=== PATIENT | male | born 1950 | race Caucasian/White ===

== ENCOUNTER → 2024-01-19 10:26 | Outpatient (REF) | payer MEDICARE, OTHER, SELFPAY ==
[2024-01-19 11:16] LABS: % Eosinophils 5.2 % (0-6); % Lymphocytes 33.7 % (20.5-51.1); % Monocytes 9.5 % (1.7-9.3); % Neutrophils 50.6 % (42.2-75.2); Absolute Basophils 0.1 10^3/uL (0-0.2); Absolute Eosinophils 0.3 10^3/uL (0-0.7); Absolute Lymphocytes 1.6 10^3/uL (1.2-3.4); Absolute Monocytes 0.5 10^3/uL (0.1-0.6); Absolute Neutrophils 2.4 10^3/uL (1.4-6.5); Hemoglobin 15.1 g/dL (13.0-18.0); Mean Corp Hgb Conc. 34.3 g/dL (33.0-37.0); Mean Corpuscular Hgb 31.9 pg (27.0-31.0); Mean Platelet Volume 11.9 fL (7.4-10.4); Nucleated Red Blood Cells % 0 % (-); Platelet Count 205 10^3/uL (130-400); Red Blood Cell Count 4.73 10^6/uL (4.70-6.10); Red Cell Dist. Width 12.4 % (11.5-14.5); White Blood Cell Count 4.8 10^3/uL (4.8-10.8)
[2024-01-19 12:10] LABS: ALT (SGPT) 34 U/L (0-50); AST (SGOT) 27 U/L (17-59); Albumin 4.4 g/dl (3.5-5.0); Alkaline Phosphatase 42 U/L (38-126); Blood Urea Nitrogen 17 mg/dl (9-20); Calcium 9.6 mg/dl (8.4-10.2); Carbon Dioxide 29 mmol/L (22-30); Chloride 103 mmol/L (98-107); Glucose 114 mg/dl (70-99); HDL Cholesterol 47 mg/dl; LDL Cholesterol, Calculated 68 mg/dl; Potassium 4.6 mmol/L (3.5-5.1); Sodium 140 mmol/L (135-145); Total Bilirubin 0.9 mg/dl (0.2-1.3); Total Cholesterol 137 mg/dl (50-199); Total Protein 7.1 g/dl (6.3-8.2); Triglyceride 111 mg/dl (10-149); Very Low Density Lipoprotein 22 mg/dl (0-30); eGFR > 60.00
[2024-01-19 12:20] LABS: PSA, Total - Diagnostic < 0.06 ng/ml (0.0-4.0)
== END ==
LOC: HWLAB 10:26
PROVIDERS: ATTENDING PHYSICIAN Family Medicine
DX: I10 Essential (primary) hypertension (principal); C61 Malignant neoplasm of prostate; E78.2 Mixed hyperlipidemia
CPT/HCPCS: 36415; 80053; 80061; 84153; 85025

== ENCOUNTER 2024-03-30 13:24 | Day surgery (SDC) | payer MEDICARE, OTHER, SELFPAY ==
[2024-03-30] VITALS (15 sets, daily range): BP systolic 111–183; BP diastolic 68–99; BMI 33.9
--- NOTE | 2024-03-30 09:53 | ED.GENMED ---
History of Present Illness
General
Chief Complaint: Chest Pain
Source: patient, records and spouse
Time Seen by Provider: 03/30/24 09:20
History of Present Illness
History of Present Illness:
73-year-old male with past medical history of hypertension, hyperlipidemia, mesothelioma, prostate cancer presenting to the emergency department for evaluation of pain to the left shoulder that radiates across the anterior portion of his chest and
neck towards the right shoulder, started over the weekend and was admitted at [facility] from Thursday and Thursday, was told he had pneumonia and started on antibiotics and that pain was likely related to pleurisy. Pain went away yesterday
but returned this morning prompting him to come back to the ER for further evaluation. Patient reports that while he was admitted he had an x-ray as well as a CAT scan done, echocardiogram and stress test. Patient continues with oral antibiotics
and anti-inflammatories at home. Symptoms are not any today than what brought him to the hospital over the weekend. 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 He otherwise denies any fevers, chills, rigors, cough. Symptoms appear to be
nonpositional.
Past History
Past History
ED Past Medical History: Cancer, HTN, Hypercholesterolemia and Other (Left forearm ORIF)
ED Past Surgical History: Orthopedic and Urological
Social History
Tobacco: Non-smoker
Alcohol: Occasional
Drug: None
Personal:
Living: with family
Family History
Family History: Other (He has a sister who had a glioblastoma)
Review of Systems
Review of Systems
All Other Systems: ROS reviewed and negative except as documented in HPI and ROS
Phy Exam
Physical Exam
Physical Exam:
GENERAL: Alert , in no apparent distress
EYE: clear conjunctiva b/l
HEAD: NCAT
ENT: o/p clr, mmm.
CARDIAC: Regular rate and rhythm, no murmur .
LUNGS: Clear breath sounds bilaterally, no acute respiratory distress, no wheezes/rales/rhonchi
ABDOMEN: Soft, without focal tenderness, no r/g, no cvat, negative Santiago sign, no tenderness at McBurney's point
NEUROLOGICAL: Alert and oriented
SKIN: Warm and dry, skin intact.
MUSCULOSKELETAL: No edema, well perfused.
PSYCH: Normal and appropriate interaction.
Scores
Heart Failure Risk
Heart Failure Risk Score: Not Applicable
Heart Score for Chest Pain Patients
STEMI patient?: No
History: Slightly or Non-Suspicious
ECG: Nonspecific Repolarization
Age: >/= 65 years
Risk Factors: 1 or 2 Risk Factors
Troponin: </= Normal Limit
Heart Score for Chest Pain Patients: 4
Heart Score Risk: 20.3% MACE over next 6 weeks
Withdrawal Assessment of Alcohol
Withdrawal Assessment Completed?: Not applicable
Course
Orders/Labs/Results
Orders:
Orders
03/30/24 09:05
Electrocardiogram (*1) Urgent
Reason for Study: Chest Pain
EKG- Treatment ONCE
03/30/24 09:58
Complete Blood Count/With Diff Urgent
Comprehensive Metabolic Panel Urgent
Troponin I Urgent
03/30/24 10:30
CR Chest - 2 Views Urgent
Comment:
Reason For Exam: anterior chest wall pain, recent pneumonia
03/30/24 10:53
Aspirin Chewable [Low Strength Aspirin] 324 mg PO NOW STA
03/30/24 10:59
Nitroglycerin Sublingual [Nitrostat (Sublingual)] 0.4 mg SL NOW STA
03/30/24 12:05
Heparin 10,000 units .ROUTE .STK-MED ONE
Verapamil Injectable [Isoptin/Verapamil Injection] 5 mg .ROUTE .STK-MED ONE
03/30/24 12:06
Heparin 1000 Units/500 ml [Heparin] 1,000 units in 500 ml .ROUTE .STK-MED
Heparin Sodium,Porcine/Ns/Pf [Heparin 2000 Units/1000 ml] 2,000 unit in 1,000 ml .ROUTE .STK-MED
Nitroglycerin [Tridil] 1,500 mcg .ROUTE .STK-MED ONE
03/30/24 12:10
Lidocaine HCl/Pf [Xylocaine-Mpf 1% Vial] 50 mg .ROUTE .STK-MED ONE
03/30/24 12:11
Fentanyl Citrate/Pf [Sublimaze] 100 mcg .ROUTE .STK-MED ONE
Midazolam HCl [Versed] 2 mg .ROUTE .STK-MED ONE
Abnormal Lab Results
03/30/24
09:58
RBC 4.68 L 10^6/uL
(4.70-6.10)
MCH 32.5 H pg
(27.0-31.0)
MPV 11.5 H fL
(7.4-10.4)
Monocytes % 10.4 H %
(1.7-9.3)
Glucose 107 H mg/dl
(70-99)
Troponin I 0.038 H* ng/ml
03/30/24 09:58
03/30/24 09:58
Vital Signs
Initial and Last Documented VS:
Initial Vital Signs
Temp Pulse Resp BP Pulse Ox
98.3 F 77 18 183/99 97
03/30/24 08:59 03/30/24 08:59 03/30/24 08:59 03/30/24 08:59 03/30/24 08:59
Last Documented Vital Signs
Temp Pulse Resp BP Pulse Ox
98.3 F 66 18 131/94 95
03/30/24 08:59 03/30/24 12:00 03/30/24 12:00 03/30/24 12:00 03/30/24 12:00
Farm Management Adviser consulted with Physician
Farm Management Adviser consulted with physician?: Yes
Name of Physician Consulted: Germaine
MDM/Problems Addressed
Differential Diagnosis Includes:
Myocarditis/pericarditis, pleurisy, pneumonia, minimal concern for ACS given patient's reportedly normal stress test earlier this week, no concern for PE given patient's reported normal CT scan
MDM/Problems Addressed:
73-year-old male presenting to the emergency department for reevaluation after being diagnosed with pleurisy secondary to pneumonia over the weekend. Due to patient's chest pain he was also worked up with CTA of the chest abdomen pelvis,
echocardiogram and stress test. I was able to review the records via [facility]'s patient portal. I was able to confirm patient's echocardiogram results which included normal left ventricular size, EF of 60 to 65%. There is a trileaflet
aortic valve with mild wall thickening. There is normal pericardium with no significant pericardial effusion. CTA of the chest abdomen pelvis to rule out dissection was ordered which showed ectasia of the ascending thoracic aorta, no pulmonary
embolus, bibasilar infiltrates right greater than left consistent with pneumonia and incidentally found a 25% superior plate compression fracture of L1. Patient was seen by cardiology as well as infectious disease. No cardiac ischemic event on
stress test. Patient taking doxycycline and cefuroxime. Viral panel negative. Overall I still suspect pleurisy as patient's most likely diagnosis given his recent workup. Will recheck labs, EKG and chest x-ray. Patient is otherwise
hemodynamically stable.
Chronic conditions affecting care: HTN
*Pulse Oximetry
Patient hypoxic: no
*EKG
Interpreted by ED Provider?: Yes
Heart Rate: 72
Rate: normal
Rhythm: sinus
[place]: normal axis
Ischemia: non-specific ST changes
*Cheese Wrapper Interpretation
Rate: normal
Rhythm: sinus
*Critical Care Note
Total Time (30-74mins, 75-104mins- exclusive of procedures): Not Applicable
Data Reviewed
Review of Other/Old Records Reveals: Labs, Records, Radiology Studies and Discharge Summary
Patient Management
Discussion with other providers: Hospitalist and Youth Probation Officer
Escalation/DeEscalation of care consider admission/obs:
Patient's troponin did come back mildly elevated at 0.038. Given that he had recurrence of pain combined with a now elevated troponin we will consult with cardiology for possible cardiac catheterization. Hospitalist team is aware and accepts for
continued evaluation and treatment. 324 mg of aspirin and 1 sublingual nitroglycerin were ordered for patient's symptoms.
ED Attending Note
-
Portions of this chart may have been created with voice recognition software.� Occasional wrong word or��sound alike� substitutions may have occurred due to the inherent limitations of voice recognition software.
Discharge Plan
Departure
Patient Disposition: Admit
Date of Disposition: 03/30/24
Time of Disposition: 10:56
Presentation/result/management discussed w/ accepting MD/DO: Hospitalist
Discharge Problem:
Chest pain
Prescriptions:
No Action
cholecalciferol (vitamin D3) 2,000 UNIT tablet
1,000 unit PO DAILY
acetaminophen [Tylenol Extended Release] 650 mg Tablet Extended Release
1,300 mg PO [id number] PRN (Reason: mild pain)
albuterol sulfate [Proventil HFA] 90 MCG/PUFF HFA aerosol inhaler
2 puff inhalation R Q4HPRN PRN (Reason: shortness of breath)
fexofenadine [Emelina] 60 mg Tablet
60 mg PO DAILY
atorvastatin [Lipitor] 10 mg Tablet
10 mg PO DAILY
lisinopril 20 mg Tablet
20 mg PO DAILY
Theragen Tablet
1 tab PO DAILY
amlodipine [Norvasc] 5 mg Tablet
5 mg PO QPM
Qvar 80 mcg/actuation Aerosol
2 mcg INHALATION R Q6HPRN PRN (Reason: sob)
dextroamphetamine-amphetamine [Adderall XR] 20 mg Capsule,Extended Release 24hr
20 mg PO DAILY
doxycycline monohydrate 100 mg Capsule
100 mg PO BID
montelukast [Singulair] 10 mg Tablet
10 mg PO QPM
cefuroxime axetil 500 mg Tablet
500 mg PO BID
fluticasone propionate [Flonase] 50 mcg/actuation [place],Suspension
1 spray INTRANASAL BIDPRN PRN (Reason: allergies)
Trintellix 10 mg Tablet
10 mg PO DAILY
Referrals:
Bulmaro Ng DO [Family Provider] -
Interventions
Interventions:
*Risk Screen - Suicide Last Done: 03/30/24 10:02
*General Assessment Last Done: 03/30/24 10:02
*Neglect/Abuse Screening Last Done: 03/30/24 10:02
ED- Fall Risk Assessment Last Done: 03/30/24 10:04
*ED COVID-19 Vaccine History Last Done: 03/30/24 10:02
ED- Cardiac Assessment Last Done: 03/30/24 10:04
Discharge Date and Time
Print Language: AMHARIC
[2024-03-30 10:06] LABS: % Basophils 0.8 % (0-2); % Eosinophils 5.4 % (0-6); % Immature Granulocytes 0.2 % (0-0.5); % Lymphocytes 22.6 % (20.5-51.1); % Monocytes 10.4 % (1.7-9.3); % Neutrophils 60.6 % (42.2-75.2); Absolute Basophils 0.1 10^3/uL (0-0.2); Absolute Eosinophils 0.3 10^3/uL (0-0.7); Absolute Lymphocytes 1.3 10^3/uL (1.2-3.4); Absolute Monocytes 0.6 10^3/uL (0.1-0.6); Absolute Neutrophils 3.6 10^3/uL (1.4-6.5); Hematocrit 42.9 % (39.0-52.0); Hemoglobin 15.2 g/dL (13.0-18.0); Mean Corp Hgb Conc. 35.4 g/dL (33.0-37.0); Mean Corpuscular Hgb 32.5 pg (27.0-31.0); Mean Corpuscular Volume 91.7 fL (80.0-94.0); Mean Platelet Volume 11.5 fL (7.4-10.4); Nucleated Red Blood Cells % 0 % (-); Platelet Count 203 10^3/uL (130-400); Red Blood Cell Count 4.68 10^6/uL (4.70-6.10); Red Cell Dist. Width 12.5 % (11.5-14.5); White Blood Cell Count 5.9 10^3/uL (4.8-10.8)
[2024-03-30 10:28] LABS: ALT (SGPT) 36 U/L (0-50); AST (SGOT) 31 U/L (17-59); Albumin 4.4 g/dl (3.5-5.0); Alkaline Phosphatase 57 U/L (38-126); Blood Urea Nitrogen 17 mg/dl (9-20); Calcium 10.2 mg/dl (8.4-10.2); Carbon Dioxide 25 mmol/L (22-30); Chloride 105 mmol/L (98-107); Estimated Creatinine Clearance 95 ml/min; Glucose 107 mg/dl (70-99); Potassium 3.9 mmol/L (3.5-5.1); Sodium 137 mmol/L (135-145); Total Bilirubin 0.6 mg/dl (0.2-1.3); eGFR > 60.00
[2024-03-30 10:47] LABS: Troponin I 0.038 ng/ml
[2024-03-30] MEDS: NITROSTAT (SUBLINGUAL) 0.4 MG SL (11:02)
[2024-03-30] MEDS: LOW STRENGTH ASPIRIN 324 MG PO (11:02)
--- NOTE | 2024-03-30 11:47 | CON.CAR ---
Addendum entered and electronically signed by Yuliana Zapien MD 03/30/24 14:12:
I saw and examined the patient.
The Manager Pharmacy's note was reviewed and I agree with the note.
Comment: Briefly, patient is a 73-year-old gentleman with past medical history of hypertension, hyperlipidemia, ADD, eosinophilia who presents with 2 recurrent episodes of chest discomfort across the anterior upper chest and shoulders radiating into
his neck initially Thursday morning on March 27, 2024 which prompted visit to [facility] emergency department with an overnight stay with a negative cardiac workup including negative troponins, no acute ischemic changes on EKG, CT angiogram per
PE/aortic protocol which was negative for aortic dissection or PE. CT showed some concerns possible for a pneumonia and therefore pain was thought to be pleuritic in nature and he was sent home on antibiotics however patient denies any fevers or
cough. They also did a stress test per the patient which was negative. He reports that he did well for 1 day after being home however this morning he was woken up again by similar chest discomfort and presented to [facility] emergency room. He
does note power washing last week with some discomfort in the anterior chest region afterwards and prior episodes of pleuritis however both of the symptoms seem different to that. No specific exertional component to his discomfort. No exacerbating
or alleviating factors. Patient took Tylenol for pain this morning without significant relief. He was given aspirin and nitroglycerin in the emergency department with minimal improvement. Initial troponin mildly elevated at 0.038 with cutoff
value per lab at 0.035.
Lab work and vital signs reviewed. On exam patient is in no acute distress, well-appearing, normal S1 and S2, no murmurs, rubs or gallops, lungs are clear to auscultation bilaterally, no carotid bruits, no JVP, abdomen soft, nontender not distended
with active bowel sounds, warm extremities without significant edema.
ECG does not show any signs of acute ischemia. Otherwise it is a normal sinus rhythm with normal axis.
Recommendations:
1. We had a discussion with the patient that after recent cardiac workup which was not revealing in the setting of atypical symptoms, suspicion for primarily cardiac etiology is low however he does have multiple cardiovascular risk factors and at
the age of 73, we cannot definitively rule out that this is not a type I NSTEMI with a mild troponin elevation. In this case after discussing the risk and benefits we agreed to move forward with invasive cardiac catheterization to rule out
obstructive CAD.
2. In the interim we will continue his current medications including daily aspirin. His most recent LDL was 68.
3. Further recommendations based on heart catheterization.
Yuliana Zapien MD, [facility], [facility]
Original Note:
Consultation
Consultation Request
Date/Time Consultation Performed: 03/30/24
Requesting Provider: Marshall Herrmann PA-C
Performing Provider: Milagro Vera PA-C for Dr. Zapien
Reason for Consultation: CP
Medical History
-
Chief Complaint: CP
History of Present Illness:
Patient is a 73 yo M with PMH of HTN, HLD, ADD, eosinophilia who reports developed sharp discomfort across his upper chest and shoulders, into his neck on Thursday morning, 03/27/24. He states he noted it when he woke up that morning. Took tylenol
which did not improve the pain. He was evaluated at [facility] and was admitted 03/27-03/28. Pain was not improved with morphine, tramadol. During his stay, he had echo and nuclear stress test both of which were reportedly unrevealing for
significant abnormalities. Trops were negative. He also had CTA which was negative for dissection or PE. It did show possible PNA so pain was felt to be pleuritic secondary to that and was discharged on abx. He reports he did ok for several days
however this morning was noted upon him waking. He reports power washing his home last week however had soreness for a day or so which then resolved. No other trauma or injuries to area. No associated SOB, palpitations, lightheadedness, fevers. Trop
0.038. Cardiology consulted for eval. Received SL nitro x1 and asa 324mg and pain improved however not yet resolved.
PMH:
HTN
HLD
ADD
eosinophilia
Past Medical History
Past Medical History: Other (in HPI)
Social History
Tobacco: Non-Smoker
Alcohol: Occasional
Personal:
Living: With Family
Employment: Retired
Family History
Family History: Other (arrhythmia in mother)
Allergies / Home Medications
Allergy/AdvReac Type Severity Reaction Status Date / Time
No Known Allergies Allergy Verified 01/24/20 11:19
�Medication �Instructions �Recorded �Confirmed �Type
cholecalciferol (vitamin D3) 50 1,000 unit PO DAILY 09/26/17 03/30/24 History
mcg (2,000 unit) tablet
acetaminophen 650 mg 1,300 mg PO [id number] PRN mild pain 03/30/24 03/30/24 History
tablet,extended release
albuterol sulfate 90 mcg/actuation 2 puff inhalation R Q4HPRN PRN 03/30/24 03/30/24 History
aerosol inhaler (Proventil HFA) shortness of breath
amlodipine 5 mg tablet (Norvasc) 5 mg PO QPM 03/30/24 03/30/24 History
atorvastatin 10 mg tablet (Lipitor) 10 mg PO DAILY 03/30/24 03/30/24 History
beclomethasone dipropionate 80 2 mcg inhalation R Q6HPRN PRN sob 03/30/24 03/30/24 History
mcg/actuation aerosol inhaler
cefuroxime axetil 500 mg tablet 500 mg PO BID 03/30/24 03/30/24 History
dextroamphetamine-amphetamine ER 20 mg PO DAILY 03/30/24 03/30/24 History
20 mg 24hr capsule,extend release
(Adderall XR)
doxycycline monohydrate 100 mg 100 mg PO BID 03/30/24 03/30/24 History
capsule
fexofenadine 60 mg tablet 60 mg PO DAILY 03/30/24 03/30/24 History
fluticasone propionate 50 1 spray intranasal BIDPRN PRN 03/30/24 03/30/24 History
mcg/actuation nasal allergies
spray,suspension
lisinopril 20 mg tablet 20 mg PO DAILY 03/30/24 03/30/24 History
montelukast 10 mg tablet 10 mg PO QPM 03/30/24 03/30/24 History
(Singulair)
therapeutic multivitamin 1 tab PO DAILY 03/30/24 03/30/24 History
vortioxetine 10 mg tablet 10 mg PO DAILY 03/30/24 03/30/24 History
(Trintellix)
Review of Systems
-
History Source: Patient and Family
All other systems: Negative unless noted
Physical Exam
Vital Signs
Temp Pulse Resp BP Pulse Ox
98.3 F 75 23 156/84 94
03/30/24 08:59 03/30/24 10:00 03/30/24 10:00 03/30/24 11:02 03/30/24 10:00
Lab Results
03/30/24 09:58
03/30/24 09:58
Troponin I 0.038 ng/ml H* 03/30/24 09:58
Physical Exam
General: No Apparent Distress and Comfortable
HEENT: Normocephalic, Anicteric and Moist Mucous Membranes
Respiratory: Clear and Non Labored Respirations
Cardiac: Regular Rhythm
GI: Soft, Non Tender, Non Distended and Normal Bowel Sounds
Musculoskeletal: No Clubbing, No Cyanosis and No Edema
Skin: Warm and Dry
Neuro: AO x 3
Impression / Plan
-
Primary Demand Inspector: none
Assessment:
Presentation with CP
Elevated troponin
Recent PNA, [facility] 03/27, on abx
HTN
HLD
ADD
eosinophilia
L1 compression fracture by CTA 03/27/24
ECHO 8/19/24: EF 60 to 65%, stage I diastolic dysfunction, trace MR, trace AR, mild TR
Plan:
-Patient with recent admission to [facility] 03/27 - 03/28 for similar symptoms, with negative workup as noted above now presents to [facility] with recurrence of symptoms.
-Initial troponin 0.038. During [facility] admission were serially negative. trend to peak
-EKG sinus rhythm with NSSTS
-CXR without acute abnormality noted
-reviewed testing from [facility] admission and discussed with patient/ at bedside
-given recurrent symptoms with mild trop elevation and improvement in symptoms with asa, nitro, will plan for cardiac cath today. NPO. reviewed procedure with patient and at bedside and they are agreeable to proceed
-further recommendations based on results of cath
-not on asa as OP
-on norvasc 5mg daily, lisinopril 20mg daily, lipitor 10mg QPM as OP
-d/w ER PA
Data Reviewed
-
EKG: Tracing Personally Visualized and interpreted
Radiology: Report Reviewed by me
Medical Tests (Nuc Med, Echo etc): Report Reviewed by me
Labs: Labs Reviewed by me
Old Records: Reviewed
--- NOTE | 2024-03-30 13:19 | HPS.HSE ---
Family Physician
-
Family Physician: Bulmaro Ng
Chief Complaint
-
Chest pain
History of Present Illness
Patient is a 73-year-old male with hypertension, hyperlipidemia, eosinophilia that presented to the emergency department with a complaint of sharp discomfort across his upper chest and shoulders.
Symptoms for started on 03/27/2024 with upper chest discomfort that radiated into his neck. States that started when he awoke that morning. Initially took Tylenol without improvement. He was at the [facility] and went to the hospital at [facility], admitted 03/27 and 03/28. Pain noted did not improve with morphine or tramadol. During hospitalization he had echocardiogram and nuclear stress test which were reportedly both unrevealing. Also mentioned to have a CTA which was negative
for any dissection or PE. CT did show possible findings consistent with pneumonia and he was started on antibiotics, discharged on oral regimen. His symptoms were improved for several days however on the morning of 03/30/2024 he had recurrence of
pain upon awakening. Denies any trauma or known injuries to the upper thorax. Denies associated symptoms of shortness of breath, lightheadedness, palpitations, fevers.
Upon arrival to the ED he was hemodynamically stable, afebrile, on room air comfortably. ED labs showed troponin 0.038 though otherwise were noncontributory. ECG did not show any acute ST changes or STEMI equivalents, no obvious T wave
abnormalities. Chest x-ray today was unremarkable for any acute findings. He was given sublingual nitroglycerin and full dose aspirin in the ED. Evaluated by cardiology who recommended proceeding with cardiac catheterization and angiography today.
Medical History
Past Medical History
Past Medical History: Reports HTN and Hypercholesterolemia
Past Surgical History: Reports None
Social History
Tobacco: Non-smoker
Alcohol: None
Drug: None
Family History
Family History: Not pertinent
Allergies / Home Medications
Allergies reflects when Allergies were last updated in [employer].
Home Medications with original date entered in [employer]
Allergy/Medication List:
NKDA
Review of Systems
-
History Source: Patient
A 12 point ROS was completed and negative except as noted: Yes
Constitutional: Reports No Symptoms
EENT: Reports No Symptoms
Respiratory: Reports No Symptoms
Cardiac: Reports Chest Pain
Abdomen/GI: Reports No Symptoms
: Reports No Symptoms
Musculoskeletal: Reports No Symptoms
Skin: Reports No Symptoms
Neurological: Reports No Symptoms
Endocrine: Reports No Symptoms
Hematologic/Lymphatic: Reports No Symptoms
Psych: Reports No Symptoms
Physical Exam
Vital Signs
Vital Signs
Temp Pulse Resp BP Pulse Ox
98.3 F 58 18 131/94 95
03/30/24 08:59 03/30/24 12:16 03/30/24 12:00 03/30/24 12:00 03/30/24 12:00
Physical Exam
General: No Apparent Distress and Comfortable
HEENT: NormoCephalic, Anicteric, Moist mucous membranes and Atraumatic
Respiratory: Clear and Non Labored Respirations; No Wheezes, Rales, Rhonchi or Accessory Resp Muscle Use
Cardiac: S1/S2 and Regular Rhythm; No Murmur, Rub, Gallop, Peripheral Edema or JVD
GI: Soft, Non Tender, Non Distended and Normal Bowel Sounds
Musculoskeletal: No Clubbing, No Cyanosis and No Edema
Skin: Warm and Dry; No Rash or Jaundice
Neuro: AO x 3, Nonfocal/grossly intact and Cranial Nerves Intact; No Tremors
Hematologic/Lymphatic: No Lymphadenopathy
Laboratory Results
-
03/30/24 09:58
03/30/24 09:58
Laboratory Results
Total Bilirubin 0.6 mg/dl (0.2-1.3) 03/30/24 09:58
AST 31 U/L (17-59) 03/30/24 09:58
ALT 36 U/L (0-50) 03/30/24 09:58
Alkaline Phosphatase 57 U/L (38-126) 03/30/24 09:58
Troponin I 0.038 ng/ml H* 03/30/24 09:58
Impression/Plan
-
#NSTEMI -- Type 1 vs Type 2
-Recurrent chest pain with radiation to neck and shoulders though sharp in quality
-No obvious ischemic ECG changes though does have an elevated troponin now
-Coronary risk factors include hypertension, hyperlipidemia, age and male gender
-Status post sublingual nitroglycerin and full dose aspirin given in the ED
-Has remained hemodynamically stable, no indication for emergent cath
-Does have a relatively high pretest probability
-Cardiology following
Plan
-Plan for [facility] with angiography today
-Order lipid panel, A1c to assess metabolic status
-Trend troponin with serial ECGs pending [facility] today
-Continue with home statin and ACEi, consider escalating statin
-Consider low-dose beta-kenny and antiplatelet therapy pending cath results
-Admit to telemetry
#Community-acquired pneumonia
-Recently diagnosed at [facility], DC'd on cefuroxime twice daily
-Chest x-ray today without any signs of consolidation
-Afebrile, currently on room air comfortably
-Plan to complete cefuroxime course as prescribed
#Hypertension
-Home medications include amlodipine and lisinopril
-No known history of hypertensive systemic disease
-Blood pressure on arrival was well-controlled
#Dyslipidemia
-Currently on statin therapy
-No current ASCVD history though being worked up for chest pain
#Eosinophilia
-Unclear etiology, chronic
-No signs of insidious eosinophilic disease
-Will monitor daily CBC
DVT prophylaxis: Heparin
Diet: N.p.o. pending possible cath today,
CODE STATUS: Full code
Disposition: Admit to telemetry
I will be admitting Mack Sawyer to telemetry for possible ACS which will require further workup via left heart catheterization and angiography. He is at increased risk for morbidity and mortality due to coronary ischemia and potential for
complications including life-threatening arrhythmias and asystole. I have independently evaluated and assessed the patient. I have spoken with the ED provider as well as cardiology team in order to further facilitate this patient's care.
[2024-03-30] MEDS: NSS 1000 IV (13:30)
--- NOTE | 2024-03-30 14:12 | ITS.CL.CATH ---
Support Assistant - Catheterization
Cardiac Catheterization
Procedure Report:
LEFT HEART CATHETERIZATION
Date of Procedure: March 30, 2024
Referring: [facility] emergency department
PROCEDURES:
1. Left heart catheterization, coronary angiogram.
2. Ultrasound-guided access
INDICATION: Patient is a 73-year-old gentleman with past medical history of hypertension, hyperlipidemia, ADD, eosinophilia who presents with 2 recurrent episodes of chest discomfort across the anterior upper chest and shoulders radiating into his
neck initially Thursday morning on March 27, 2024 which prompted visit to [facility] emergency department with an overnight stay with a negative cardiac workup including negative troponins, no acute ischemic changes on EKG, CT angiogram per
PE/aortic protocol which was negative for aortic dissection or PE. CT showed some concerns possible for a pneumonia and therefore pain was thought to be pleuritic in nature and he was sent home on antibiotics however patient denies any fevers or
cough. They also did a stress test per the patient which was negative. He reports that he did well for 1 day after being home however this morning he was woken up again by similar chest discomfort and presented to [facility] emergency room. He
does note power washing last week with some discomfort in the anterior chest region afterwards and prior episodes of pleuritis however both of the symptoms seem different to that. No specific exertional component to his discomfort. No exacerbating
or alleviating factors. Patient took Tylenol for pain this morning without significant relief. He was given aspirin and nitroglycerin in the emergency department with minimal improvement. Initial troponin mildly elevated at 0.038 with cutoff
value per lab at 0.035. After detailed informed consent, patient was brought up to the heart catheterization lab to rule out obstructive CAD given concern for possible type I NSTEMI
ACCESS: Right radial artery, 6 [place] sheath, under ultrasound guidance
HEMODYNAMICS : (mmHg)
AO (s/d) : 113/69
LV (s/d) : 117/6
LVEDP : 10
CORONARY FINDINGS
DOMINANCE: Right
LEFT MAIN: The left main artery is a large-caliber vessel which gives rise to the left anterior descending artery, the ramus intermedius branch and the left circumflex artery. There is mild distal tapering without obstructive CAD.
LEFT ANTERIOR DESCENDING: The left anterior descending artery is a medium caliber vessel which gives rise to multiple small caliber diagonal branches as it courses through the anterior interventricular groove towards the apex. There is minimal
luminal irregularities.
CIRCUMFLEX: The left circumflex artery is a small caliber vessel which gives rise to 1 major obtuse marginal branch. There is minimal luminal irregularities.
RAMUS INTERMEDIUS: The ramus intermedius branch is a medium caliber vessel with 20% stenosis in the proximal portion. Otherwise there is minimal luminal irregularities and an otherwise moderately tortuous vessel.
RIGHT CORONARY ARTERY: The ramus intermedius branch is a medium to large caliber, dominant vessel which gives rise to the right posterior descending artery and the right posterolateral system. There is minimal luminal irregularities.
SEDATION: 25 minutes of procedural sedation was utilized. An independent medical imaging technician was present to assist with and help manage the patient's level of consciousness and physiologic status.
RADIATION SUMMARY: Fluoro Time (min): 4.4, Dose (mGy): 399.91, DAP (Gy.cm2) : 34.87
Closure Device: Vascular band over right radial artery, 10 cc of air.
CONCLUSIONS
1. No obstructive coronary artery disease.
2. Normal LVEDP at 10 mmHg.
RECOMMENDATIONS
1. Wean radial band per protocol.
2. Aggressive management of cardiovascular risk factors.
3. Defer to primary team for workup/management of noncardiac chest pain
Yuliana Zapien MD, FACC, [facility] [place]
[2024-03-30 14:59] LABS: Troponin I 0.035 ng/ml
--- NOTE | 2024-03-30 15:13 | CM ---
Chart reviewed. Patient is independent of ADLS, lives with his in a [address], 0 [address], 0 DME. Plan is for the patient to return home. CM to follow
[2024-03-30] MEDS: NORVASC 5 MG PO (17:21)
[2024-03-30] MEDS: SINGULAIR 10 MG PO (17:25)
[2024-03-30] MEDS: HEPARIN 5000 UNITS SC ×2 (17:25→23:13)
--- NOTE | 2024-03-30 17:56 | PTCARENOTE ---
Pt received post cardiac cath done via right radial artery. Radial band removed per protocol without problem, activity restrictions for right hand understood by patient. Pt denies any discomfort, up independently in room, voiding without difficulty.
Troponin level peaked at 0.038. Telemetry shows sinus rhythm.
[2024-03-30] MEDS: CEFTIN 500 MG PO (20:02)
[2024-03-30] MEDS: VIBRAMYCIN 100 MG PO (20:02)
--- NOTE | 2024-03-30 21:36 | PTCARENOTE ---
Pt received at change of shift, Ox3, NSR on monitor, HR 66, reviewed activity restrictions. see nursing shift assessment for complete assessment.
Pt denies any discomfort, up independently in room, voiding without difficulty. Resting in bed, call lee in reach.
[2024-03-31] VITALS (13 sets, daily range): BP systolic 111–156; BP diastolic 75–120
[2024-03-31 03:38] LABS: Hematocrit 41.6 % (39.0-52.0); Hemoglobin 15.1 g/dL (13.0-18.0); Mean Corp Hgb Conc. 36.3 g/dL (33.0-37.0); Mean Corpuscular Hgb 32.2 pg (27.0-31.0); Mean Corpuscular Volume 88.7 fL (80.0-94.0); Mean Platelet Volume 11.2 fL (7.4-10.4); Platelet Count 206 10^3/uL (130-400); Red Blood Cell Count 4.69 10^6/uL (4.70-6.10); Red Cell Dist. Width 12.6 % (11.5-14.5); White Blood Cell Count 8.2 10^3/uL (4.8-10.8)
[2024-03-31 04:00] LABS: Blood Urea Nitrogen 16 mg/dl (9-20); Calcium 9.9 mg/dl (8.4-10.2); Carbon Dioxide 24 mmol/L (22-30); Chloride 104 mmol/L (98-107); Estimated Creatinine Clearance 95 ml/min; Glucose 94 mg/dl (70-99); HDL Cholesterol 51 mg/dl; LDL Cholesterol, Calculated 75 mg/dl; Magnesium 2.2 mg/dl (1.6-2.3); Potassium 4.2 mmol/L (3.5-5.1); Sodium 141 mmol/L (135-145); Total Cholesterol 150 mg/dl (50-199); Triglyceride 123 mg/dl (10-149); Very Low Density Lipoprotein 24 mg/dl (0-30); eGFR > 60.00
[2024-03-31 04:49] LABS: Hepatitis C Antibody Negative (Negative)
[2024-03-31 08:34] LABS: Glycohemoglobin (HgbA1c) 5.4 % (4.0-5.6)
[2024-03-31] MEDS: CEFTIN 500 MG PO ×2 (08:57→19:55)
[2024-03-31] MEDS: THERAGRAN 1 TABLET PO (08:57)
[2024-03-31] MEDS: CLARITIN 10 MG PO (08:58)
[2024-03-31] MEDS: VIBRAMYCIN 100 MG PO ×2 (08:58→19:55)
[2024-03-31] MEDS: ZESTRIL 20 MG PO (08:58)
[2024-03-31] MEDS: HEPARIN SC (08:58)
[2024-03-31] MEDS: LIPITOR 10 MG PO (08:58)
[2024-03-31] MEDS: VITAMIN D3 (cholecalciferol) 25 MCG PO (08:58)
--- NOTE | 2024-03-31 09:44 | W.PN.HOSP.TC ---
Today's Communication/Plan
-
Discharge
Assessment / Plan
Assessment / Plan
#Pleuritic chest pain
#Community-acquired pneumonia
-Recently diagnosed at [facility], DC'd on cefuroxime twice daily
-Chest x-ray without any signs of consolidation or other acute processes
-Afebrile, currently on room air comfortably, nontoxic-appearing
-Plan to complete cefuroxime and doxycycline course as prescribed
#Type II NSTEMI
-Recurrent chest pain with radiation to neck and shoulders though sharp in quality
-No obvious ischemic ECG changes though does have an elevated troponin now
-Coronary angiography on 03/30 showed patent epicardial coronary arteries
-Cardiology following
#Hypertension
-Home medications include amlodipine and lisinopril
-No known history of hypertensive systemic disease
-Blood pressure on arrival was well-controlled
#Dyslipidemia
-Currently on statin therapy
-No current ASCVD history though being worked up for chest pain
#Eosinophilia
-Unclear etiology, chronic
-No signs of insidious eosinophilic disease
-Will monitor daily CBC
DVT prophylaxis: Heparin
Diet: N.p.o. pending possible cath today,
CODE STATUS: Full code
Anticipated Discharge: Today
Subjective/Interval History
-
Date of Service: March 31, 2024
Seen and examined at the bedside. No acute events overnight. He denies any recurrence of his chest pain. Denies all other symptoms including shortness of breath, palpitations, nausea, vomiting, fevers or chills, abnormal bleeding or bruising,
urinary issues.
He does state that his symptoms yesterday resolved within 20 minutes of receiving sublingual nitroglycerin and full dose aspirin. Suspect that the aspirin was source of improved pain with anti-inflammatory action reducing pleural irritation.
Objective Data
-
Labs:
Laboratory Results
03/31/24
03:08
WBC 8.2
Hgb 15.1
Hct 41.6
Plt Count 206
Sodium 141
Potassium 4.2
Chloride 104
Carbon Dioxide 24
BUN 16
Creatinine 0.8
Glucose 94
Calcium 9.9
Vital Signs:
Vital Signs
Temp Pulse Resp BP Pulse Ox
97.9 F 65 20 130/89 95
03/31/24 07:12 03/31/24 08:45 03/31/24 07:12 03/31/24 07:14 03/31/24 09:01
I&O
03/30/24 03/31/24 04/01/24
06:59 06:59 06:59
Intake Total 740 / 740
Balance 740 / 740
Review of Systems
-
History Source: Patient
All other systems: Reviewed and negative
Physical Exam
-
General: Well Developed, Well Nourished and No Apparent Distress
HEENT: Normocephalic, Atraumatic and Moist Mucous Membranes
Respiratory: Clear to Auscultation and Non Labored Respirations
Cardiac: Regular Rhythm and S1/S2; Negative Murmur, Rub or Gallop
GI: Soft, Nontender, Nondistended and Normal Bowel Sounds
Musculoskeletal: No Clubbing, No Cyanosis and No Edema
Skin: Warm and Dry; Negative Rash
Neuro: AO x 3, Nonfocal/Grossly Intact and Central Nerve's Intact
Data Reviewed
-
Labs: Labs Reviewed by me and Discussed with Patient
--- NOTE | 2024-03-31 09:53 | W.DCSUMMARY ---
Discharge Summary
Discharge Data
Date of Admission: 03/30/24
Date of Discharge: 03/31/24
-
Pending Results: No
Hospital Course
Patient presented to the hospital with recurrent chest pain. Initially was hospitalized and the [facility]) where he was diagnosed with bacterial pneumonia and started on cephalosporin and doxycycline therapy. Developed
recurrent chest pain after discharge on morning of 03/30/2024. Reportedly negative stress testing and CTA at [facility]. Upon arrival had normal EKG with mildly elevated troponin. Coronary angiography was unyielding with patent
epicardial coronary circulation. Suspect pleurisy related to recent pneumonia, chest pain was associated with inspiration. Telemetry was unyielding overnight, no recurrence of symptoms after left heart cath. Discharged on oral NSAIDs as needed
for pleuritic pain.
Discharge Plan
-
Patient Disposition: Home (Routine Discharge)
Discharge Diagnosis/Procedures: Cardiac cath
Pleuritic chest pain
Condition: Good
Diet: Low Cholesterol
Activity: No restrictions
Driving Restrictions: No driving for 24 hours
Bathing Restrictions: None
Blood Work: None
Others Tests: None
Specialty Instructions: Weigh Daily- Call MD for wt gain/loss 3 lbs overnight/5 lbs in 1 week
Activity Restrictions/Additional Instructions:
Follow-up with your primary care physician and service inspector within 7 to 10 days after discharge from the hospital
Stand Alone Forms: DC Instructions- Cath/EP Lab
Referrals:
Ginette Osborne PA-C [Specified Professional Personl] - 04/20/24 9:40 am
Bulmaro Ng DO [Family Provider] - in one to two months
Additional Discharge Medication Instructions: Take [id number] ibuprofen or Aleve as needed for pleuritic chest pain
Continue antibiotics for pneumonia as previously prescribed
Prescriptions:
Continued
cholecalciferol (vitamin D3) 2,000 UNIT tablet
1,000 unit PO DAILY
acetaminophen 650 mg Tablet Extended Release
1,300 mg PO [id number] PRN (Reason: mild pain)
albuterol sulfate [Proventil HFA] 90 MCG/PUFF HFA aerosol inhaler
2 puff inhalation R Q4HPRN PRN (Reason: shortness of breath)
fexofenadine 60 mg Tablet
60 mg PO DAILY
atorvastatin [Lipitor] 10 mg Tablet
10 mg PO DAILY
lisinopril 20 mg Tablet
20 mg PO DAILY
therapeutic multivitamin Tablet
1 tab PO DAILY
amlodipine [Norvasc] 5 mg Tablet
5 mg PO QPM
beclomethasone dipropionate 80 mcg/actuation Aerosol
2 mcg INHALATION R Q6HPRN PRN (Reason: sob)
dextroamphetamine-amphetamine [Adderall XR] 20 mg Capsule,Extended Release 24hr
20 mg PO DAILY
doxycycline monohydrate 100 mg Capsule
100 mg PO BID
montelukast [Singulair] 10 mg Tablet
10 mg PO QPM
cefuroxime axetil 500 mg Tablet
500 mg PO BID
fluticasone propionate 50 mcg/actuation [place],Suspension
1 spray INTRANASAL BIDPRN PRN (Reason: allergies)
Trintellix 10 mg Tablet
10 mg PO DAILY
Discharge Orders:
Discharge Patient (As Directed); Ordered 03/31/24
Ordered By: Ramírez Reyes
Care Plan Goals
Care Plan Goals:
Problem: Readiness for enhanced knowledge related to diagnosis and treatment plan
Goal: Understand your diagnosis and treatment plan needs, including medications if applicable.
Instructions: Know your diagnosis, underlying causes and treatment plan options, including medications if applicable. Consult with your health care team to learn about your diagnosis and treatment plan, including medications if applicable.
Discharge Date and Time
Print Language: GUATEMALAN
--- NOTE | 2024-03-31 10:13 | PTCARENOTE ---
Pt noted to be in atrial fib at a rate @100-120 with activity. Confirmed by ECG, Milagro Vera NP aware. Pt asymptomatic and denies ever having known about atrial fib in the past.
--- NOTE | 2024-03-31 11:14 | W.PN.CARDCBS ---
Addendum entered and electronically signed by Felicia Haque DO 03/31/24 15:51:
I saw and examined the patient.
The Bond Manager's note was reviewed and I agree with the note.
Comment: Patient seen and examined after we were notified that he had gone into atrial fibrillation with RVR. Symptoms not associated with chest pain and patient is relatively asymptomatic. Hospital studies and findings reviewed with patient.
GEN: AAOX3, NAD
HEENT: mmm
LUNGS: CTA B/L, no wheezes/rales
CV: Irreg, S1/S2, no murmur
EXT: No cyanosis, clubbing, edema
Plan:
Newly diagnosed relatively asymptomatic atrial fibrillation with rapid ventricular response
-We discussed diagnosis, possible symptoms, treatment management options and stroke risk including stroke risk reduction
-IV Cardizem push followed by oral Cardizem. Hopeful patient will convert to sinus rhythm spontaneously however if not we discussed cardioversion. As patient is relatively asymptomatic, if rate controlled we will favor 4 weeks of oral
anticoagulation followed by outpatient cardioversion
-Start new Eliquis 5 mg twice daily for stroke risk reduction
-Check TSH
Nonobstructive coronary artery disease by cardiac catheterization 03/30/2024
-Reviewed left heart catheterization findings with patient. Right radial site intact
-Continue risk factor reduction; continue statin
Hypertension�blood pressure is relatively controlled
Original Note:
Today's Communication / Plan
-
IV cardizem push. stop norvasc, start cardizem cd 120mg daily
eliquis 5mg BID
ongoing work up of chest pain
Impression / Plan
-
Primary Research And Development Manager: none
Assessment:
Presentation with CP
Elevated troponin, nonobstructive CAD by cath 03/30/24
Atrial fibrillation with RVR, new diagnosis
Recent PNA, diagnosed [facility] 03/27, on abx
HTN
HLD
ADD
eosinophilia
L1 compression fracture by CTA 03/27/24
ECHO 03/28/24: EF 60 to 65%, stage I diastolic dysfunction, trace MR, trace AR, mild TR
Plan:
-he presented with chest and shoulder discomfort. trop peaked at 0.038.
-Status post chest CTA, echo and nuclear stress test earlier this week at [facility] which were unremarkable. Underwent cardiac catheterization with nonobstructive CAD 03/30
-No chest discomfort overnight
-Chest x-ray without acute abnormality
-This morning was noted to go into atrial fibrillation with rapid ventricular response, new diagnosis for patient. reports occurred while patient was straining to go to bathroom. Not having pain this morning, and asymptomatic. Will give IV
Cardizem push and start p.o. Cardizem 120 mg daily. Will stop outpatient Norvasc with addition of Cardizem.
-Add Eliquis 5 mg twice daily
-Continue outpatient lisinopril and Lipitor
-continue work up of chest/shoulder discomfort per primary service
Progress Note - Research And Development Manager
Subjective
Date of Service: March 31, 2024
No present chest pain, shortness of breath, palpitations, lightheadedness
Objective
Labs:
03/31/24 03:08
03/31/24 03:08
Labs
Hgb 15.1 g/dL (13.0-18.0) 03/31/24 03:08
Hct 41.6 % (39.0-52.0) 03/31/24 03:08
Plt Count 206 10^3/uL (130-400) 03/31/24 03:08
Sodium 141 mmol/L (135-145) 03/31/24 03:08
Potassium 4.2 mmol/L (3.5-5.1) 03/31/24 03:08
BUN 16 mg/dl (9-20) 03/31/24 03:08
Creatinine 0.8 mg/dL (0.7-1.3) 03/31/24 03:08
Glucose 94 mg/dl (70-99) 03/31/24 03:08
Troponins
03/30/24 03/30/24 03/30/24
09:58 14:16 19:33
Troponin I 0.038 H* 0.035 H* Cancelled
Vital Signs and I&O:
Vital Signs
Temp Pulse Resp BP Pulse Ox
98.1 F 65 20 142/110 96
03/31/24 11:07 03/31/24 08:45 03/31/24 11:07 03/31/24 11:07 03/31/24 11:07
Vital Signs
Temp Pulse Resp BP Pulse Ox
98.1 F 65 20 142/110 96
03/31/24 11:07 03/31/24 08:45 03/31/24 11:07 03/31/24 11:07 03/31/24 11:07
Intake & Output
03/29/24 03/30/24 03/31/24 04/01/24
07:59 07:59 07:59 07:59
Intake Total 740 / 740
Balance 740 / 740
Physical Exam
Physical Exam
GEN: No distress, awake, alert, oriented x3
HEENT: supple, anicteric, mmm, eomi
LUNGS: CTA B/L, no wheezes/rales
CV: Irreg, S1/S2, no murmur
EXT: No cyanosis, clubbing, edema
NEURO: Gross non-focal
SKIN: Warm, pink, dry. No rash
[2024-03-31] MEDS: ELIQUIS 5 MG PO ×2 (11:27→19:55)
[2024-03-31] MEDS: CARDIZEM 10 MG IV (11:27)
--- NOTE | 2024-03-31 11:46 | CM ---
Pricing on EliMENABANQER through the patient's [employer] is $107.41 for a 30 day supply. Patient is agreeable to the cost. I placed a free 30 day coupon in the patient's red discharge folder
[2024-03-31] MEDS: CARDIZEM CD 120 MG PO (13:21)
[2024-03-31] MEDS: CARDIZEM 125 IV (16:13)
--- NOTE | 2024-03-31 16:40 | W.PN.UPDATE ---
Update Note
Progress Note Update
Prior to discharge patient converted to atrial fibrillation while having a bowel movement. No recurrence of symptoms or any new symptoms of shortness of breath, palpitations, lightheadedness during his atrial fibrillation. Discharge was canceled
at that time, cardiology evaluated him and he is now on diltiazem drip with Eliquis twice daily. Question if his atrial fibrillation is related to his coronary angiogram as he has not had any previous episodes of atrial fibrillation, and had no
A-fib while on telemetry at hospital at [facility] prior to here.
Will continue to attempt rate control, continue with anticoagulation. If atrial fibrillation is persistent, patient may be a good candidate for ablation due to his minimal comorbidities, though at this time he is not symptomatic.
--- NOTE | 2024-03-31 19:45 | PTCARENOTE ---
Pt given cardizem bolus, eliquis and oral cardizem, he remains in atrial fib @100-120. cardizem infusion startd at 5mg/hr, plan for CV on 04/01 if needed. Pt learning about atrial fib.
[2024-03-31] MEDS: SINGULAIR 10 MG PO (19:55)
--- NOTE | 2024-03-31 23:27 | PTCARENOTE ---
Received pt at handoff. AOX3. Assessment completed as documented. Tele- Afib. HR 70-90s. Cardizem gtt infusing at 5ml/hr. Pt currently has no c/o at this time. Educated pt to use call lee to report any changes in status. Currently in bed; call lee
w/in reach.
[2024-04-01 02:08] VITALS: BP 118/77
[2024-04-01 07:17] VITALS: BP 116/69
[2024-04-01] MEDS: ELIQUIS 5 MG PO (07:45)
--- NOTE | 2024-04-01 08:27 | W.PN.CARDCBS ---
Addendum entered and electronically signed by Felicia Haque DO 04/01/24 11:07:
I saw and examined the patient.
The Support Specialist's note was reviewed and I agree with the note.
Comment: Patient seen and examined with cardiac PA. He continues to be in atrial fibrillation with higher heart rates at rest. We discussed options for arrhythmia management and have agreed to proceed with MENDOZA/cardioversion.
GEN:NAD, AAOx3
HEENT: mmm
LUNGS: CTA B/L, no wheezes/rales
CV: Irreg, S1/S2, no murmur
EXT: No cyanosis, clubbing, edema
NEURO: Gross non-focal
Plan:
Newly diagnosed relatively asymptomatic atrial fibrillation with rapid ventricular response
-We discussed diagnosis, possible symptoms, treatment management options and stroke risk including stroke risk reduction
-Will proceed with transesophageal echocardiogram and cardioversion today
-Consider adding antiarrhythmic therapy such as flecainide given no obstructive coronary disease
-Start new Eliquis 5 mg twice daily for stroke risk reduction
-Check TSH
Nonobstructive coronary artery disease by cardiac catheterization 03/30/2024
-Peak cardiac troponin 0.038
-Reviewed left heart catheterization findings with patient. Right radial site intact
-Continue risk factor reduction; continue statin
-Lipid profile 03/31/2024: Total cholesterol 150, triglycerides 123, LDL 75, HDL 51.
Hypertension�blood pressure is controlled
Sleep apnea on CPAP managed by Dr. Hendricks
Original Note:
Today's Communication / Plan
-
Stop cardizem gtt and transition to PO cardizem 120mg daily
Continue Eliquis
MENDOZA/CV today prior to discharge
Follow up arranged
Impression / Plan
-
Primary Supervisor Pipeline Maintenance: none
Assessment:
Presentation with CP
Elevated troponin, nonobstructive CAD by cath 03/30/24
Atrial fibrillation with RVR, new diagnosis
Recent PNA, diagnosed [facility] 03/27, on abx
HTN
HLD
ADD
eosinophilia
L1 compression fracture by CTA 03/27/24
ECHO 03/28/24: EF 60 to 65%, stage I diastolic dysfunction, trace MR, trace AR, mild TR
Plan:
-Presented with chest and shoulder discomfort. Elevated troponin noted with troponin peaking at 0.038.
-Underwent LHC 03/30 which noted nonobstructive CAD. No further chest pain noted.
-In AM 03/31, went into rapid atrial fibrillation which was a new diagnosis for patient. Asymptomatic.
-Started on cardizem gtt and rates are improved overnight, however he remains in Afib.
-Will stop cardizem gtt and start PO cardizem CD 120mg daily for rate control
-Eliquis 5mg BID started 03/31 for anticoagulation. Continue.
-After discussion with patient and , plan will be for MENDOZA/CV today to restore SR prior to discharge.
-Continue lisinopril and lipitor.
-Follow up arranged
Progress Note - Supervisor Pipeline Maintenance
Subjective
Date of Service: April 01, 2024
Feeling well, no complaints. Remains in Afib.
Objective
Labs:
03/31/24 03:08
03/31/24 03:08
Labs
Hgb 15.1 g/dL (13.0-18.0) 03/31/24 03:08
Hct 41.6 % (39.0-52.0) 03/31/24 03:08
Plt Count 206 10^3/uL (130-400) 03/31/24 03:08
Sodium 141 mmol/L (135-145) 03/31/24 03:08
Potassium 4.2 mmol/L (3.5-5.1) 03/31/24 03:08
BUN 16 mg/dl (9-20) 03/31/24 03:08
Creatinine 0.8 mg/dL (0.7-1.3) 03/31/24 03:08
Glucose 94 mg/dl (70-99) 03/31/24 03:08
Troponins
03/30/24 03/30/24 03/30/24
09:58 14:16 19:33
Troponin I 0.038 H* 0.035 H* Cancelled
Vital Signs and I&O:
Vital Signs
Temp Pulse Resp BP Pulse Ox
98 F 86 16 116/69 96
04/01/24 07:15 04/01/24 07:30 04/01/24 07:15 04/01/24 07:17 04/01/24 07:46
Vital Signs
Temp Pulse Resp BP Pulse Ox
98 F 86 16 116/69 96
04/01/24 07:15 04/01/24 07:30 04/01/24 07:15 04/01/24 07:17 04/01/24 07:46
Intake & Output
03/30/24 03/31/24 04/01/24 04/02/24
06:59 06:59 06:59 06:59
Intake Total 740 / 740
Balance 740 / 740
Physical Exam
Physical Exam
GEN: No distress, awake, alert, oriented x3
HEENT: supple, anicteric, mmm, eomi
LUNGS: CTA B/L, no wheezes/rales
CV: Irreg, S1/S2, no murmur
EXT: No cyanosis, clubbing, edema
NEURO: Gross non-focal
SKIN: Warm, pink, dry. No rash
--- NOTE | 2024-04-01 08:50 | PN.CDI ---
CDI
- -
CDI:
Physician Documentation Request
Admit Date: 03/30/24 14:10
Dear Doctor Eric,
Please review the following and provide your response in the progress notes.
Clinical Indicators:
PN, 03/31
#Pleuritic chest pain
#Community-acquired pneumonia
#...-Plan to complete cefuroxime and doxycycline course as prescribed
#Type II NSTEMI
#...-Recurrent chest pain with radiation to neck and shoulders though sharp in quality
#...-No obvious ischemic ECG changes though does have an elevated troponin now
#...-Coronary angiography on 03/30 showed patent epicardial coronary arteries
Cardiology PN, 03/31
#Elevated troponin, nonobstructive CAD by cath 03/30/24
Laboratory Tests
03/30/24 03/30/24
09:58 14:16
Troponin I 0.038 H* 0.035 H*
Please clarify the etiology of the elevated troponins:
Non-ischemic myocardial infarction
Type II NSTEMI
Other(please specify)
Use of terms such as suspected, likely, concern for, or probable (associated with a specific diagnosis that is being evaluated, monitored, or treated as if it exists) are acceptable and can be coded in the inpatient setting, when documented at the
time of discharge.
Thank you,
Marylin Dueñas RN BSN CCDS
CDI Specialist
please contact via tiger text
Please use your independent medical judgment in providing your response.
--- NOTE | 2024-04-01 09:50 | W.PN.HOSP.TC ---
Addendum entered and electronically signed by Ramírez Reyes DO 04/01/24 13:35:
CDI: Type II NSTEMI, chest pain and elevated Trop without acute coronary occlusion
Original Note:
Today's Communication/Plan
-
MENDOZA cardioversion with cardiology
Possible discharge later
Assessment / Plan
Assessment / Plan
#New onset atrial fibrillation
-Nonvalvular, [id number] score 3; possibly related to recent coronary procedures
-Has been started on diltiazem drip for rate control, Eliquis twice daily for anticoagulation
-Remains asymptomatic with heart rates in the low 100s in atrial fibrillation next
-Cardiology following, planning for MENDOZA cardioversion today
-Plan for oral diltiazem as rate control and Eliquis at discharge
-Consider AF ablation if unsuccessful cardioversion per 2022 AHA guidelines
#Pleuritic chest pain
#Community-acquired pneumonia
-Recently diagnosed at [facility], DC'd on cefuroxime twice daily
-Chest x-ray without any signs of consolidation or other acute processes
-Afebrile, currently on room air comfortably, nontoxic-appearing
-Plan to complete cefuroxime and doxycycline course as prescribed
#Type II NSTEMI
-Recurrent chest pain with radiation to neck and shoulders though sharp in quality
-No obvious ischemic ECG changes though does have an elevated troponin now
-Coronary angiography on 03/30 showed patent epicardial coronary arteries
-Cardiology following
#Hypertension
-Home medications include amlodipine and lisinopril
-No known history of hypertensive systemic disease
-Blood pressure on arrival was well-controlled
#Dyslipidemia
-Currently on statin therapy
-No current ASCVD history though being worked up for chest pain
#Eosinophilia
-Unclear etiology, chronic
-No signs of insidious eosinophilic disease
-Will monitor daily CBC
DVT prophylaxis: Heparin
CODE STATUS: Full code
Anticipated Discharge: Within 24 hours
Subjective/Interval History
-
Date of Service: April 01, 2024
Seen and examined the bedside. No acute events reported overnight. Remains in atrial fibrillation with heart rates in the low 100s per minute on average
He denies any acute complaints. Denies chest pain, shortness of breath, palpitations, fevers or chills, nausea, vomiting, diarrhea, bleeding or bruising, paresthesias or weakness
Currently plan for MENDOZA cardioversion today with possible discharge later
Objective Data
-
Vital Signs:
Vital Signs
Temp Pulse Resp BP Pulse Ox
98 F 86 16 116/69 96
04/01/24 07:15 04/01/24 07:30 04/01/24 07:15 04/01/24 07:17 04/01/24 07:46
I&O
03/31/24 04/01/24 04/02/24
06:59 06:59 06:59
Intake Total 740 / 740
Balance 740 / 740
Review of Systems
-
History Source: Patient
All other systems: Reviewed and negative
Physical Exam
-
General: No Apparent Distress and Comfortable
HEENT: Normocephalic, Atraumatic and Moist Mucous Membranes
Respiratory: Clear to Auscultation and Non Labored Respirations; Negative Wheezes, Rales or Rhonchi
Cardiac: S1/S2, Irregular Rhythm and Tachycardic; Negative Murmur, Rub, JVD or Gallop
GI: Soft, Nontender, Nondistended and Normal Bowel Sounds
Musculoskeletal: No Clubbing, No Cyanosis and No Edema
Skin: Warm and Dry; Negative Rash or Jaundice
Neuro: AO x 3, Nonfocal/Grossly Intact and Central Nerve's Intact
Data Reviewed
-
Labs: Labs Reviewed by me and Discussed with Family
[2024-04-01] MEDS: CARDIZEM CD 120 MG PO (10:15)
[2024-04-01 11:09] VITALS: BP 112/74
--- NOTE | 2024-04-01 12:27 | CM ---
Chart reviewed. Patient is waiting for a CV. Patient is independent of ADLS, lives with his in a [address], [address] [facility], 0 [address]. Plan is for the patient to return home. CM to follow
[2024-04-01 13:01] VITALS: BP 104/71
--- NOTE | 2024-04-01 13:03 | W.DCSUMMARY ---
Discharge Summary
Discharge Data
Date of Admission: 03/30/24
Date of Discharge: 04/01/24
-
Pending Results: No
Hospital Course
Patient presented to the hospital with recurrent chest pain. Initially was hospitalized and the [facility]) where he was diagnosed with bacterial pneumonia and started on cephalosporin and doxycycline therapy. Developed
recurrent chest pain after discharge on morning of 03/30/2024. Reportedly negative stress testing and CTA at [facility]. Upon arrival had normal EKG with mildly elevated troponin. Coronary angiography was unyielding with patent
epicardial coronary circulation. Suspect pleurisy related to recent pneumonia, chest pain was associated with inspiration. Telemetry was unyielding overnight, no recurrence of symptoms after left heart cath. Discharged on oral NSAIDs as needed
for pleuritic pain.
Prior to discharge, while having a bowel movement, he converted to new onset atrial fibrillation with heart rates 120/min. Was started on IV diltiazem drip with only moderate improvement to his heart rate, cardiology evaluated and performed MENDOZA
guided cardioversion with success after 1 administration of 200 J. Was transition to oral diltiazem ER 120 mg daily with Eliquis twice daily for anticoagulation. Patient was comfortable, in NSR, and symptom-free prior to discharge.
Discharge Plan
-
Patient Disposition: Home (Routine Discharge)
Discharge Diagnosis/Procedures: Cardiac cath
Atrial fibrillation
Pleuritic chest pain
Condition: Good
Diet: Low Cholesterol
Activity: No restrictions
Driving Restrictions: No driving for 24 hours
Bathing Restrictions: OK to Shower
Blood Work: None
Others Tests: None
Specialty Instructions: Weigh Daily- Call MD for wt gain/loss 3 lbs overnight/5 lbs in 1 week
Activity Restrictions/Additional Instructions:
Follow-up with your primary care physician and solutions architect consultant within 7 to 10 days after discharge from the hospital
Instructions: Atrial fibrillation
Stand Alone Forms: DC Instructions- Cath/EP Lab
Referrals:
Osborne,Ginette, PA-C [Specified Professional Personl] - 04/20/24 9:40 am
Bulmaro Ng DO [Family Provider] - in one to two months
Additional Discharge Medication Instructions: Take [id number] ibuprofen or Aleve as needed for pleuritic chest pain
Continue antibiotics for pneumonia as previously prescribed to complete course
Start diltiazem ER 120 mg daily
Start Eliquis 5 mg twice daily
Stop Adderall until you talk with your solutions architect consultant or PCP in the office
Prescriptions:
New
diltiazem HCl 120 mg Capsule,Extended Release 24hr
120 mg PO DAILY 30 Days Qty: 30 0RF
Continued
cholecalciferol (vitamin D3) 2,000 UNIT tablet
1,000 unit PO DAILY
acetaminophen 650 mg Tablet Extended Release
1,300 mg PO [id number] PRN (Reason: mild pain)
albuterol sulfate [Proventil HFA] 90 MCG/PUFF HFA aerosol inhaler
2 puff inhalation R Q4HPRN PRN (Reason: shortness of breath)
fexofenadine 60 mg Tablet
60 mg PO DAILY
atorvastatin [Lipitor] 10 mg Tablet
10 mg PO DAILY
lisinopril 20 mg Tablet
20 mg PO DAILY
therapeutic multivitamin Tablet
1 tab PO DAILY
amlodipine [Norvasc] 5 mg Tablet
5 mg PO QPM
beclomethasone dipropionate 80 mcg/actuation Aerosol
2 mcg INHALATION R Q6HPRN PRN (Reason: sob)
doxycycline monohydrate 100 mg Capsule
100 mg PO BID
montelukast [Singulair] 10 mg Tablet
10 mg PO QPM
cefuroxime axetil 500 mg Tablet
500 mg PO BID
fluticasone propionate 50 mcg/actuation [place],Suspension
1 spray INTRANASAL BIDPRN PRN (Reason: allergies)
Trintellix 10 mg Tablet
10 mg PO DAILY
Held
dextroamphetamine-amphetamine [Adderall XR] 20 mg Capsule,Extended Release 24hr
20 mg PO DAILY
Hold Instructions: Resume on 05/02/24.
Discharge Orders:
Discharge Patient (As Directed); Ordered 04/01/24
Ordered By: Ramírez Reyes
Care Plan Goals
Care Plan Goals:
Problem: Readiness for enhanced knowledge related to diagnosis and treatment plan
Goal: Understand your diagnosis and treatment plan needs, including medications if applicable.
Instructions: Know your diagnosis, underlying causes and treatment plan options, including medications if applicable. Consult with your health care team to learn about your diagnosis and treatment plan, including medications if applicable.
Discharge Date and Time
Print Language: PORTUGUESE
--- NOTE | 2024-04-01 13:13 | W.PN.UPDATE ---
Update Note
Progress Note Update
Spoke with patient and at the bedside following cardioversion. Currently in normal sinus rhythm resting comfortably. Denies any symptoms. Plan to discharge at 4 PM
[2024-04-01] MEDS: VIBRAMYCIN 100 MG PO (14:46)
[2024-04-01] MEDS: CEFTIN 500 MG PO (14:47)
[2024-04-01] MEDS: LIPITOR 10 MG PO (14:47)
[2024-04-01] MEDS: THERAGRAN 1 TABLET PO (14:47)
[2024-04-01] MEDS: VITAMIN D3 (cholecalciferol) 25 MCG PO (14:47)
[2024-04-01] MEDS: CLARITIN 10 MG PO (14:47)
[2024-04-01 14:49] VITALS: BP 136/68
[2024-04-01] MEDS: ZESTRIL 20 MG PO (14:49)
[2024-04-01 16:19] LABS: TSH Reflex To Free T4 2.01 uIU/ml (0.47-4.68)
--- NOTE | 2024-04-01 16:57 | PTCARENOTE ---
Pt had MENDOZA/CV, now in sinus rhythm. Uneventful recovery post procedure. Telemetry and IV device removed. Discharge instructions reviewed with pt regarding taking his own pulse, medications and their possible side effects, activity and driving
guidelines, reporting cares and concerns and follow up appt's. Very good understanding verbalized. Pt escorted out via wheelchair and discharged to home.
--- NOTE | 2024-04-01 18:04 | ITS.CL.CARDI ---
[employer] - Cardioversion
Cardioversion
Procedure Report:
Date of Procedure: 04/01/2024
Procedure: Cardioversion
Indication: Symptomatic atrial fibrillation
Performing Physician: Felicia Haque DO [facility]
Anticoagulation: Eliquis
Precardioversion transesophageal echocardiogram performed: No left atrial appendage thrombus
Technique: The patient was brought to the holding area. Signed informed consent was obtained. A time out was called and performed. The patient was anesthetized by the anesthesia service. Anticoagulation status was reviewed and appropriate.
Transesophageal echocardiogram performed without complications; no left atrial appendage thrombus. R2 pads were placed anteriorly and posteriorly. A 200 J synchronized biphasic shock restored normal sinus rhythm without significant bradycardia.
There were no complications.
Conclusion: Uncomplicated cardioversion from atrial fibrillation to sinus rhythm.
Recommendation: Routine post cardioversion care. Continue skilled nursing anticoagulation.
== END 2024-04-01 16:45 | disposition home or self-care (01) ==
LOC: CATH 13:24
PROVIDERS: Internal Medicine Cardiovascular Disease; Nurse Practitioner Adult Health; Physician Assistant Medical; ATTENDING PHYSICIAN Internal Medicine; CONSULT PHYSICIAN Internal Medicine Interventional Cardiology; EMERGENCY PHYSICIAN Emergency Medicine; FAMILY PHYSICIAN Family Medicine
DX: I25.10 Atherosclerotic heart disease of native coronary artery without angina pectoris (principal); I48.91 Unspecified atrial fibrillation; I08.3 Combined rheumatic disorders of mitral, aortic and tricuspid valves; I10 Essential (primary) hypertension; E78.00 Pure hypercholesterolemia, unspecified; R07.9 Chest pain, unspecified; Z85.46 Personal history of malignant neoplasm of prostate; Z79.01 Long term (current) use of anticoagulants
CPT/HCPCS: 99152; 99153; 93312; 93320; 93325; C1894; 71046; 80048; 80053; 80061; 83036; 83735; 84443; 84484; 85025; 85027; 86803; 92960; 93005; 93458; 99285; Q9967

== ENCOUNTER → 2024-06-29 15:05 | Outpatient (REF) | payer MEDICARE, OTHER, SELFPAY | LOC: PAVMRI 15:05 | PROVIDERS: ATTENDING PHYSICIAN Family Medicine | DX: R47.01 Aphasia (principal); R43.1 Parosmia | CPT/HCPCS: 70553; A9575 ==